=== PATIENT | male | born 1995 | race American Indian/Alaskan Native ===

== ENCOUNTER 2019-02-11 13:57 | Emergency (ER) | payer SELFPAY ==
--- NOTE | 2019-02-11 14:03 | Emergency Department Report ---
Blank Doc - Documentation Documentation: This is a 23-year-old male that presents with left sided abdominal pain and fl ank pain. This initial assessment/diagnostic orders/clinical plan/treatment(s) is/are subject to change based on patient's health status, clinical progression and re- assessment by fellow clinical providers in the ED. Further treatment and workup at subsequent clinical providers discretion. Patient/guardians urged not to elope from the ED as their condition may be serious if not clinically assessed and managed. Initial orders include: 1- Patient sent to main ED for further evaluation and treatment 2- labs 3- UA
[2019-02-11 14:34] LABS: Basophils % (Auto) 0.2 % (0.0-1.8); Eosinophils % (Auto) 0.1 % (0.0-4.3); Hematocrit 46.2 % (35.5-45.6); Hemoglobin 15.1 gm/dl (11.8-15.2); Lymphocytes # (Auto) 0.8 K/mm3 (1.2-5.4); Lymphocytes % (Auto) 7.3 % (13.4-35.0); Mean Corpuscular HGB Conc 33 % (32-34); Mean Corpuscular Volume 96 fl (84-94); Monocytes # (Auto) 0.9 K/mm3 (0.0-0.8); Monocytes % (Auto) 7.6 % (0.0-7.3); Platelet Count 184 K/mm3 (140-440); Red Cell Distribution Width 12.7 % (13.2-15.2)
[2019-02-11 14:38] LABS: Bilirubin,Urine NEG (Negative); Blood,Urine NEG (Negative); Color,Urine Yellow (Yellow); Mucus,Urine FEW /HPF
[2019-02-11 14:58] LABS: Alanine Aminotransferase 27 units/L (7-56); Albumin 4.4 g/dL (3.9-5); BUN/Creatinine Ratio 13; Blood Urea Nitrogen 16 mg/dL (9-20); Calcium 9.9 mg/dL (8.4-10.2); Hemolysis Index 13
[2019-02-11] MEDS ORDERED: ZITHROMAX PO ONE (15:40)
[2019-02-11] MEDS ORDERED: XYLOCAINE 1% MPF 5 mL INFILTRATI ONE (15:40)
[2019-02-11] MEDS ORDERED: NACL 0.9% 1000 ML 1,000 ML IV ONE (15:40)
[2019-02-11] MEDS ORDERED: SUBLIMAZE IV ONE (15:40)
[2019-02-11] MEDS ORDERED: ROCEPHIN IM ONE (15:40)
[2019-02-11] MEDS ORDERED: REGLAN IV ONE (15:41)
--- NOTE | 2019-02-11 15:59 | Emergency Department Report ---
HPI - General Chief Complaint: Back Pain/Injury Time Seen by Provider: 02/11/19 14:03 - HPI HPI: Room 19 The patient is a 43-year-old male presenting with a chief complaint of abdominal pain. The patient states this morning at 09:00 with pain in the left upper quadrant described as sharp and constant in nature. Patient was nausea vomiting but denies diarrhea or fever. Patient has dysuria for 1 day but denies hematuria or penile discharge. Patient denies sore throat. Patient gives his pain a score of 10/10 Location: [See above] Duration: [See above] Quality: [See above] Severity: [See above] Timing: [See above] Context: [See above] Modifying factors: [See above] Associated signs and symptoms: [see above] ED Past Medical Hx - Past Medical History Previous Medical History?: No - Surgical History Past Surgical History?: No - Family History Family history: no significant - Social History Smoking Status: Never Smoker Substance Use Type: Marijuana - Medications Home Medications: Home Medications Medication Instructions Recorded Confirmed Last Taken Type Ketorolac [Toradol] 10 mg PO Q6H PRN #16 tablet 02/11/19 Unknown Rx Ondansetron [Zofran ODT TAB] 8 mg PO Q8HR #20 tab.rapdis 02/11/19 Unknown Rx Tamsulosin [Flomax] 0.4 mg PO QDAY #7 cap 02/11/19 Unknown Rx oxyCODONE /ACETAMINOPHEN [Percocet 1 - 2 tab PO Q6HR PRN #14 tablet 02/11/19 Unknown Rx 5/325] ED Review of Systems ROS: Stated complaint: SEVERE STOMACH PAIN Other details as noted in HPI Constitutional: denies: fever Eyes: denies: eye pain ENT: denies: throat pain Respiratory: no symptoms reported Cardiovascular: denies: chest pain Endocrine: no symptoms reported Gastrointestinal: abdominal pain, nausea, vomiting. denies: diarrhea Genitourinary: dysuria. denies: hematuria Musculoskeletal: denies: back pain Neurological: denies: headache Physical Exam - Physical Exam Vital Signs: Vital Signs 02/11/19 02/11/19 14:02 14:22 Temperature 97.7 F Pulse Rate 64 67 Respiratory 18 16 Rate Blood Pressure 140/71 Blood Pressure 144/83 [Right] O2 Sat by Pulse 100 100 Oximetry Physical Exam: GENERAL: The patient is well-developed well-nourished male lying on a stretcher. Be in mild discomfort. [] HEENT: Normocephalic. Atraumatic. Extraocular motions are intact. Patient has moist mucous membranes. NECK: Supple. Trachea midline CHEST/LUNGS: Clear to auscultation. There is no respiratory distress noted. HEART/CARDIOVASCULAR: Regular. There is no tachycardia. There is no gallop rub or murmur. ABDOMEN: Abdomen is soft, with tenderness to palpation left lower quadrant, left lower quadrant and suprapubic region. There is no rebound or guarding. Patient has normal bowel sounds. There is no abdominal distention. SKIN: There is no rash. There is no edema. There is no diaphoresis. NEURO: The patient is awake, alert, and oriented. The patient is cooperative. The patient has normal speech MUSCULOSKELETAL: There is no CVA tenderness. There is no evidence of acute injury. ED Course Vital Signs 02/11/19 02/11/19 14:02 14:22 Temperature 97.7 F Pulse Rate 64 67 Respiratory 18 16 Rate Blood Pressure 140/71 Blood Pressure 144/83 [Right] O2 Sat by Pulse 100 100 Oximetry - Consultations Consultation #1: 02/11/19 18:58 Urology paged 02/11/19 19:[address] Noriega- can try Flomax. Patient may be discharged with follow-up in the office tomorrow morning at 08:30 ED Medical Decision Making - Lab Data Result diagrams: 02/11/19 14:24 02/11/19 14:24 Laboratory Tests 02/11/19 02/11/19 02/11/19 14:11 14:24 14:24 WBC 11.5 H RBC 4.80 Hgb 15.1 Hct 46.2 H MCV 96 H MCH 32 MCHC 33 RDW 12.7 L Plt Count 184 Lymph % (Auto) 7.3 L [place] % (Auto) 7.6 H Eos % (Auto) 0.1 Baso % (Auto) 0.2 Lymph # 0.8 L [place] # 0.9 H Eos # 0.0 Baso # 0.0 Seg Neutrophils % 84.8 H Seg Neutrophils # 9.8 H Sodium 139 Potassium 3.8 Chloride 99.9 Carbon Dioxide 27 Anion Gap 16 BUN 16 Creatinine 1.2 Estimated GFR > 60 BUN/Creatinine Ratio 13 Glucose 107 H Calcium 9.9 Total Bilirubin 0.90 AST 20 ALT 27 Alkaline Phosphatase 64 Total Protein 7.3 Albumin 4.4 Albumin/Globulin Ratio 1.5 Lipase 34 Urine Color Yellow Urine Turbidity Cloudy Urine pH 9.0 H Ur Specific [place] 1.020 Urine Protein 100 mg/dl Urine Glucose (UA) Neg Urine Ketones Neg Urine Blood Neg Urine Nitrite Neg Urine Bilirubin Neg Urine Urobilinogen 2.0 Ur Leukocyte Esterase Neg Urine WBC (Auto) 3.0 Urine RBC (Auto) 6.0 Urine Mucus Few - Radiology Data Radiology results: report reviewed (CT abdomen and pelvis), image reviewed (CT abdomen and pelvis) [facility] [address] [id number] Cat Scan Report Signed Patient: EDY JIMENEZ MR#: [id number] : 1995 Acct:[id number] Age/Sex: 23 / M ADM Date: 02/11/19 Loc: ED Attending Dr: Ordering Physician: WILFREDO BRAMBILA MD Date of Service: 02/11/19 Procedure(s): CT abdomen pelvis wo/w con Accession Number(s): [id number] cc: WILFREDO BRAMBILA MD CT ABDOMEN AND PELVIS WITH IV CONTRAST INDICATION: Left upper quadrant abdominal pain COMPARISON: None available. TECHNIQUE: Axial CT images were obtained through the abdomen and pelvis after 100 mL IV contrast. All CT scans at this location are performed using CT dose reduction for ALARA by means of automated exposure control. FINDINGS -- ABDOMEN: Lung Bases: No acute abnormality. Liver: Normal. Gallbladder: Normal. Bile Ducts: Normal. Pancreas: Normal. Spleen: Normal. Adrenals: Normal. Right Kidney and Proximal Ureter: Normal. Left Kidney and Proximal Ureter: Severe left hydroureteronephrosis. Stomach and Bowel: Normal. Lymph Nodes: No significant adenopathy. Aorta: No significant abnormality. IVC: Normal. Additional Findings: None. FINDINGS -- PELVIS: Urinary Bladder and Distal Ureters: Large 8 x 4 mm stone at the left ureterovesical junction.. Reproductive Organs: No acute abnormality. Appendix: Normal. Bowel: No acute abnormality. Free Fluid: None. Lymph Nodes: No significant adenopathy. Additional Findings: None. Skeletal System: No acute abnormality. IMPRESSION: Severe left hydroureteronephrosis secondary to an obstructive 8 x 4 mm stone at the left ureterovesical junction. Signer Name: Avni Winter MD Signed: 02/11/2019 6:43 PM Workstation Name: [id number] Transcribed By: BC Dictated By: Avni Winter MD Electronically Authenticated By: Avni Winter MD Signed Date/Time: 02/11/191842 DD/ 41 TD/TT: - Differential Diagnosis renal colic, pyelonephritis, UTI, chlamydia Critical care attestation.: If time is entered above; I have spent that time in minutes in the direct care of this critically ill patient, excluding procedure time. ED Disposition Clinical Impression: Renal colic on left side, Acute flank pain Disposition: TO HOME OR SELFCARE Is pt being admited?: No Does the pt Need Aspirin: No Condition: Stable Instructions: Renal Colic (ED) Additional Instructions: Return to the emergency department should you develop worsening symptoms, inability to tolerate food or liquids, high fever or any other concerns Prescriptions: Tamsulosin [Flomax] 0.4 mg PO QDAY #7 cap oxyCODONE /ACETAMINOPHEN [Percocet 5/325] 1 - 2 tab PO Q6HR PRN #14 tablet PRN Reason: Pain Ketorolac [Toradol] 10 mg PO Q6H PRN #16 tablet PRN Reason: Pain Ondansetron [Zofran ODT TAB] 8 mg PO Q8HR #20 tab.rapdis Referrals: KENA ZURITA MD [Staff Physician] - 3-5 Days YOVANY NORIEGA MD [Staff Physician] - 02/12/19 8:30 am (Dr Noriega is a Urologist. Please follow-up with him for further evaluation) Time of Disposition: 19:16
[2019-02-11] MEDS ORDERED: ZOFRAN IV ONE (17:40)
[2019-02-11] MEDS ORDERED: ZOFRAN ONE (17:41)
--- NOTE | 2019-02-11 18:48 | Cat Scan Report ---
CT ABDOMEN AND PELVIS WITH IV CONTRAST INDICATION: Left upper quadrant abdominal pain COMPARISON: None available. TECHNIQUE: Axial CT images were obtained through the abdomen and pelvis after 100 mL IV contrast. All CT scans a t this location are performed using CT dose reduction for ALARA by means of automated exposure contro l. FINDINGS -- ABDOMEN: Lung Bases: No acute abnormality. Liver: Normal. Gallbladder: Normal. Bile Ducts: Normal. Pancreas: Normal. Spleen: Normal. Adrenals: Normal. Right Kidney and Proximal Ureter: Normal. Left Kidney and Proximal Ureter: Severe left hydroureteronephrosis. Stomach and Bowel: Normal. Lymph Nodes: No significant adenopathy. Aorta: No significant abnormality. IVC: Normal. Additional Findings: None. FINDINGS -- PELVIS: Urinary Bladder and Distal Ureters: Large 8 x 4 mm stone at the left ureterovesical junction.. Reproductive Organs: No acute abnormality. Appendix: Normal. Bowel: No acute abnormality. Free Fluid: None. Lymph Nodes: No significant adenopathy. Additional Findings: None. Skeletal System: No acute abnormality. IMPRESSION: Severe left hydroureteronephrosis secondary to an obstructive 8 x 4 mm stone at the left ureterovesic al junction. Signer Name: Avni Winter MD Signed: 02/11/2019 6:43 PM Workstation Name: [id number]
[2019-02-11] MEDS ORDERED: TORADOL IV ONE (19:06)
[2019-02-11 20:11] VITALS: BP 119/73
== END 2019-02-11 19:55 | disposition home or self-care (01) ==
LOC: ED 13:57
DX: N23 Unspecified renal colic (principal); F12.90 Cannabis use, unspecified, uncomplicated; Z79.899 Other long term (current) drug therapy
CPT/HCPCS: 36415; 74178; 80053; 81001; 83690; 85025; 87086; 96361; 96372; 96374; 96375; 99284; J0696; J1885; J2405; J2765; J3010; J7030; Q9967

== ENCOUNTER 2019-02-23 09:47 | Day surgery (SDC) | payer OTHER ==
[~2019-02-23 09:47] MED LIST: LACTATED RINGERS 1,000 ML IV SCH
[2019-02-23] MEDS ORDERED: SUBLIMAZE IV PRN (10:16)
[2019-02-23] MEDS ORDERED: ZOFRAN IV PRN (10:16)
--- NOTE | 2019-02-23 10:21 | Anesthesia Day of Surgery ---
Anesthesia Day of Surgery - Day of Surgery Patient Examined: Yes Patient H&P Reviewed: Yes Patient is NPO: Yes (WATER @ 0900)
--- NOTE | 2019-02-23 10:25 | Anesthesia Consultation ---
Anesthesia Consult and Med Hx Date of service: 02/23/19 - Airway Anesthetic Teeth Evaluation: Good ROM Head & Neck: Adequate Mental/Hyoid Distance: Adequate Mallampati Class: Class II Intubation Access Assessment: Good - Pre-Operative Health Status ASA Pre-Surgery Classification: ASA2 Proposed Anesthetic Plan: General - Pulmonary Hx Smoking: No (MARIJUANA) Hx Sleep Apnea: No - Central Nervous System Hx Neuromuscular Disorder: Yes (Migraines) Hx Psychiatric Problems: Yes (Anxiety) - Endocrine Hx Renal Disease: Yes (Stones, hydronephrosis) - Hematic Hx Anemia: No Hx Sickle Cell Disease: Yes (Trait) - Other Systems Hx Alcohol Use: No Hx Substance Use: Yes (MARIJUANA) Hx Cancer: No
[2019-02-23] MEDS ORDERED: ANCEF/STERILE WATER 2 GM/20 ML IV NR (10:39)
[2019-02-23] MEDS ORDERED: DIPRIVAN 10 MG/ML IV ONE (10:44)
[2019-02-23] MEDS ORDERED: DILAUDID ONE (10:44)
[2019-02-23] MEDS ORDERED: XYLOCAINE MPF 2% ONE (10:45)
[2019-02-23] MEDS ORDERED: VERSED IV NR (11:00)
[2019-02-23] MEDS ORDERED: LASIX ONE (11:58)
[2019-02-23] MEDS ORDERED: ZOFRAN ONE (12:01)
--- NOTE | 2019-02-23 12:12 | Post Operative Note ---
Date of procedure: 02/23/19 Pre-op diagnosis: left ureteral stone Post-op diagnosis: same Findings: large stone Procedure: cysto rpg laser ureteroscopy stent Anesthesia: GETA Surgeon: YOVANY NORIEGA Estimated blood loss: minimal Pathology: list (stone) Specimen disposition: given to patient/family Condition: stable Disposition: PACU
--- NOTE | 2019-02-23 12:16 | Discharge Summary ---
Short Stay Discharge Plan Activity: no restrictions, other (no straining ) Weight Bearing Status: Full Weight Bearing Diet: regular Special Instructions: other (inc fluida ) Durable Medical Equipment Needed Upon Discharge: other (j stent ) Follow up with: PRIMARY CARE, [Primary Care Provider] - 7 Days YOVANY NORIEGA MD [Staff Physician] - 7 Days
[2019-02-23] MEDS ORDERED: WATER FOR IRRIG STERILE IR ONE ×2 (12:36)
--- NOTE | 2019-02-23 13:17 | Operative Report ---
PREOPERATIVE DIAGNOSES: Very large left distal ureteral stone, severe hydronephrosis. POSTOPERATIVE DIAGNOSES: Very large left distal ureteral stone, severe hydronephrosis. PROCEDURE: Cystoscopy, left retrograde, left ureteral balloon dilatation, left ureteroscopy, laser stone extraction, J stent. SURGEON: Dr. Spears. ANESTHESIA: General. FINDINGS: This is a 23-year-old who has had severe pain and hydronephrosis. He was seen at the Emergency Room now presents for treatment. All risks and implications discussed. DESCRIPTION OF PROCEDURE: The patient was brought to the operating table. Following induction of anesthesia, placed in lithotomy position, prepped and draped in usual sterile fashion. Cystourethroscopy showed a very swollen left orifice. Retrograde showed a large stone distal ureter. It almost like he had a ureterocele in a pocket in the distal ureter. A Glidewire coiled in the kidney. Ureteroscopy after balloon dilatation was carried out, showed the stone. It was way too big to extract. It was almost as if this was stuck in a pocket for quite some time. It was lasered into multiple pieces and this was given to the family. The patient tolerated the procedure well. Left a J stent with a string coiled in the kidney and the string was secured to the penis, brought to recovery in stable condition. JOB# [id number] MATA/JOANNA
[2019-02-23 13:38] VITALS: BP 126/74
--- NOTE | 2019-02-23 13:59 | Post Anesthesia Evaluation ---
- Post Anesthesia Evaluation Patient Participated: Yes Airway Patent: Yes Stable Respiratory Function: Yes Nausea/Vomiting: No Temp > 96.8F: Yes Pain Manageable: Yes Adequeate Hydration: Yes Anesthesia Complications: No Block Receding Appropriately: Not Applicable Patient on Ventilator: No
--- NOTE | 2019-02-23 15:30 | Fluoroscopy Report ---
FLUOROSCOPY RETROGRADE UROGRAPHY FLUOROSCOPY URETER/NEPHROSTOMY DILATATION HISTORY: Left ureteral calculi, hydronephrosis FINDINGS: 2.9 minutes of fluoroscopy time was provided by radiology during retrograde urography by roseanne moran urologist. 6 fluoroscopic images are presented. The images demonstrate a filling defect in the dist al left ureter consistent with a stone. Left ureteroscopy was performed. The stone was removed. The d istal left ureter was dilated and a left ureteral stent was placed. Please correlate with the procedu ral report by the urologist if needed. IMPRESSION: Left ureteral stone removal. Left ureteral stent placement. Signer Name: Fantasma Miranda Jr, MD Signed: 02/23/2019 3:25 PM Workstation Name: [id number]
== END 2019-02-23 09:48 | disposition home or self-care (01) ==
LOC: OR 09:47
PROVIDERS: ATTEND Urology
DX: N13.2 Hydronephrosis with renal and ureteral calculous obstruction (principal); N28.89 Other specified disorders of kidney and ureter; I10 Essential (primary) hypertension; F41.9 Anxiety disorder, unspecified; F17.210 Nicotine dependence, cigarettes, uncomplicated; G43.909 Migraine, unspecified, not intractable, without status migrainosus; Z98.890 Other specified postprocedural states; Z79.899 Other long term (current) drug therapy
CPT/HCPCS: 52356; 74420; 74485; A4217; C1726; C1758; C1769; C2617; J0690; J1170; J1940; J2250; J2405; J2704; J7120; Q9967